=== PATIENT | male | born 1985 | race Two or more races ===

== ENCOUNTER 2017-01-09 12:30 | Observation (INO) | payer SELFPAY ==
[2017-01-09 12:36] VITALS: TEMP 97.6
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
[2017-01-09] MEDS ORDERED: Amoxicillin-Clav 875-125 mg Tab PO STA (12:58)
[2017-01-09] MEDS ORDERED: TDAP Vaccine 0.5 mL Syr IM ONE (12:58)
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
[2017-01-09] MEDS ORDERED: Amoxicillin-Clav 875-125 mg Tab PO ONE (13:13)
[2017-01-09 13:30] LABS: BASO # 0.1 K/uL (0.0-0.2); BASO % 0.6 % (0.0-2.0); EOS # 0.1 K/uL (0.0-0.7); EOS % 0.6 % (0.0-4.0); HEMOGLOBIN 15.1 g/dL (12.0-18.0); LYMPH # 1.5 K/uL (1.0-4.3); LYMPH % 12.5 % (20.0-40.0); MEAN CELL VOLUME 90.4 fl (80.0-94.0); MEAN CORPUSCULAR HEMOGLOBIN 30.4 pg (27.0-31.0); MEAN CORPUSCULAR HGB CONC 33.6 g/dL (33.0-37.0); MEAN PLATELET VOLUME 7.6 fl (7.2-11.7); MONO # 1.2 K/uL (0.0-0.8); MONO % 9.4 % (0.0-10.0); NEUT # 9.5 K/uL (1.8-7.0); NEUT % 76.9 % (50.0-75.0); RBC 4.96 Mil/uL (4.40-5.90); RED CELL DISTRIBUTION WIDTH 13.9 % (11.5-14.5); WHITE BLOOD COUNT 12.4 K/uL (4.8-10.8)
[2017-01-09 13:41] LABS: ALB/GLOB RATIO 1.8 (1.0-2.1); ALT/SGPT 49 U/L (21-72); AST/SGOT 33 U/L (17-59); BLOOD UREA NITROGEN 24 mg/dl (9-20); GFR AFRICAN-AMERICAN > 60; GFR NON-AFRICAN AMERICAN > 60
[2017-01-09] MEDS ORDERED: Sodium Chloride 0.9% 1,000 ML IV STA (13:45)
[2017-01-09 16:43] VITALS: BP 105/44; PULSE 69; RESP 20
[2017-01-09 17:59] LABS: BARBITURATES, UR NEGATIVE (NEGATIVE); BENZODIAZEPINES, UR NEGATIVE (NEGATIVE); OPIATES, UR NEGATIVE (NEGATIVE); PHENCYCLIDINE, UR NEGATIVE (NEGATIVE)
[2017-01-09 18:04] VITALS: O2SAT 93
--- NOTE | 2017-01-09 19:18 | CARD ---
APPROVED REPORT EKG Measurement Heart [id number] <Conclusion> Normal sinus rhythm Normal ECG
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
== END 2017-01-09 19:00 ==
LOC: H.ER 12:30 → H.EROBSV 16:24
PROVIDERS: ADMIT Emergency Medicine; ATTEND Emergency Medicine
DX: S20.479A Other superficial bite of unspecified back wall of thorax, initial encounter (principal); Y04.1XXA Assault by human bite, initial encounter; F19.10 Other psychoactive substance abuse, uncomplicated; Z23 Encounter for immunization
CPT/HCPCS: 70450; 72125; 80053; 85025; 90471; 90715; 93005; 99284; G0378; G0480; J7040